=== PATIENT | female | born 1970 | race Two or more races ===

== ENCOUNTER 2024-03-12 17:07 | Emergency (ER) | payer OTHER ==
[~2024-03-12] VITALS: Ht 160 cm; Wt 61.2 kg
[2024-03-12] MEDS ORDERED: 0.9 % SODIUM CHLORIDE 500 ML IV ONE (20:15)
[2024-03-12] MEDS ORDERED: ONDANSETRON HCL 2 MG/ML VIAL IV ONE (20:15)
[2024-03-12] MEDS ORDERED: FAMOTIDINE/PF 20 MG/2 ML VIAL IV ONE (20:15)
[2024-03-12 20:51] LABS: HEMATOCRIT 36.3 % (36.0-45.00); HEMOGLOBIN 12.7 g/dL (12.0-15.00); MEAN CELL VOLUME 92.1 fL (80.00-100.00); MEAN CORPUSCULAR HEMOGLOBIN 32.2 pg (27.00-32.0); PLATELET COUNT 248 K/uL (150-450); RED BLOOD COUNT 3.94 M/uL (4.00-6.00)
[2024-03-12 21:14] LABS: ALBUMIN 3.6 gm/dL (3.4-5.0); BILIRUBIN TOTAL 0.38 mg/dL (0.3-1.2); BILIRUBIN,CONJUGATED 0.1 mg/dL (0.0-0.2); BILIRUBIN,UNCONJUGATED 0.28 mg/dL (0.0-0.6); CALCIUM 9.3 mg/dL (8.5-10.1); CREATININE SERUM 0.76 mg/dL (0.55-1.02); GFR 79.31; GLOBULINA 3.2 G/DL (2.4-3.5); POTASSIUM 4.24 mEq/L (3.5-5.1); TOTAL PROTEIN 6.8 gm/dL (6.4-8.2)
[2024-03-12] MEDS ORDERED: METOCLOPRAMIDE HCL 10 MG in DEXTROSE 5 % IN WATER 50 ML IV ONE (22:45)
== END 2024-03-12 23:30 ==
LOC: ER 17:09
PROVIDERS: Nurse Practitioner Family
DX: R10.11 Right upper quadrant pain (principal); R10.9 Unspecified abdominal pain

== ENCOUNTER 2024-12-26 14:43 | Emergency (ER) | payer OTHER ==
[~2024-12-26] VITALS: Ht 160 cm; Wt 66.7 kg
[2024-12-26] MEDS ORDERED: KETOROLAC TROMETHAMINE 15 MG VIAL IV STA (17:04)
[2024-12-26] MEDS ORDERED: METHYLPREDNISOLONE SOD SUCC 40 MG VIAL IV STA (17:04)
[2024-12-26] MEDS ORDERED: ORPHENADRINE CITRATE 30 MG/ML AMPUL IM STA (17:05)
[2024-12-26] MEDS ORDERED: MEDROLPACK PO (19:06)
[2024-12-26] MEDS ORDERED: CELEBREX200MG PO (19:06)
[2024-12-26] MEDS ORDERED: METAXALONE800 MG PO (19:06)
== END 2024-12-26 19:28 | disposition home or self-care (01) ==
LOC: ER 14:43
DX: M54.41 Lumbago with sciatica, right side (principal)